=== PATIENT | female | born 1950 | race Caucasian/White ===

== ENCOUNTER → 2017-12-25 | Outpatient (CLI) | payer MEDICARE, OTHER ==
[~2017-12-25] MED LIST: ALB0.5 INH; ALBU2.5V36 INH; ALBU8.5H IH; AMOX-559 PO; BENZ100C4 PO; BUDE10.2 INH; BUDRES25 IH; CEP500 PO; CHOL10005 PO; CLIN300C99 PO; CYA1000 PO; ESOM20CA31 IV; ESOM40CA42 PO; FLUT1BLS3 INH; FLUT1DIS28 IH; HYDR-317 PO; LAC3 GT; LEVO88TA43 PO; MOMR NS; MON10 PO; MONT10TA PO; MULT-820 PO; OMEP-218 PO; ONDA8TAB98 PO; OXYC-865 PO; PRE20 PO; PRED-420 PO; PRED20TA6 PO; RANI150C17 PO
--- NOTE | 2017-12-25 15:12 | RADIOLOGY IMAGING REPORT ---
[place] [facility] [place] NAME: Mariana Land : 1950 MR: [id number] V: [id number] EXAM DATE: ORDERING PHYSICIAN: ELIZABETH MATTHEW TECHNOLOGIST: Location: [facility] - [place] Patient: Mariana Land : 1950 Visit/Account:[id number] Date of Sevice: 12/25/2017 Exam type: CHEST PA AND LAT History: Cough x1 week Comparison: February 11, 2017. Findings: The lungs are free of acute effusions, infiltrates or edema. Cardiac silhouette is normal in size. The trachea is in midline. There are mild spondylotic changes of the thoracic spine. There are surg ical clips in the right upper quadrant of abdomen. IMPRESSION: 1. No acute cardiopulmonary process is seen Report Dictated By: Carie Weems MD at 12/25/2017 3:03 PM Report E-Signed By: Carie Weems MD at 12/25/2017 3:05 PM WSN:[email or web address]
== END ==
LOC: RAD 13:58
PROVIDERS: ATTEND Nurse Practitioner Primary Care
DX: R05 Cough (principal)
CPT/HCPCS: 71046

== ENCOUNTER → 2018-07-18 | Outpatient (CLI) | payer MEDICARE, OTHER ==
--- NOTE | 2018-07-18 12:23 | RADIOLOGY IMAGING REPORT ---
FACILITY: [facility] - [place] PATIENT NAME: Mariana Land : 1950 MR: [id number] V: [id number] EXAM DATE: ORDERING PHYSICIAN: MARYJO OWUSU TECHNOLOGIST: Location[place] [facility] [place] Patient: Mariana Land : 1950 Visit/Account:[id number] Date of Sevice: 07/18/2018 SINUSES W/O CONTRAST COMPARISONS: None ADDITIONAL PERTINENT HISTORY: Recurrent sinusitis with history of asthma and chronic cough and nasal polyp. TECHNIQUE: Multiple axial images were obtained through the paranasal sinuses with coronal and sagitta l reformatted images. No IV contrast was administered. One of the following dose optimization techni ques was utilized in the performance of this exam: Automated exposure control; adjustment of the mA a nd/or kV according to the patient's size; or use of an iterative reconstruction technique. Specific details can be referenced in the facility's radiology CT exam operational policy. FINDINGS: Postoperative changes: Findings which likely represent a previous right medial antrostomy and uncinec cali and partial right internal ethmoidectomy. Maxillary sinuses: Negative. Frontal sinuses: Negative. Ethmoid air cells: Negative. Sphenoid sinuses: Minimal mucosal thickening involving the left sphenoid sinus. Nasal septum: Negati ve. Drainage pathways: Patent Paranasal variance: None Medial orbital arshad, cribriform plate, and orbital floors: Negative. Visualized bony skull base Negative. Visualized intracranial contents: Negative. Orbits and surrounding soft tissues: Negative. IMPRESSION: 1. Postoperative changes involving the paranasal sinuses as discussed above. 2. No significant underlying paranasal sinus disease noted on today's exam. 3. Minimal mucosal thickening involving the left sphenoid sinus. Report Dictated By: Jean-Pierre Roth MD at 07/18/2018 12:16 PM Report E-Signed By: Jean-Pierre Roth MD at 07/18/2018 12:19 PM WSN:[id number]
--- NOTE | 2018-07-18 17:10 | RADIOLOGY IMAGING REPORT ---
FACILITY: [facility] PATIENT NAME: Mariana Land : 1950 MR: [id number] V: [id number] EXAM DATE: ORDERING PHYSICIAN: MARYJO OWUSU TECHNOLOGIST: Location: [facility] [place]: Mariana Land : 1950 Visit/Account:[id number] Date of Sevice: 07/18/2018 EXAMINATION: CT Chest Without Contrast 07/18/2018 10:00 AM HISTORY: Asthma/bronchitis. Chronic cough. Nasal polyp. Recurrent sinusitis. TECHNIQUE: Spiral scan was obtained through the chest without contrast. One of the following dose optimization techniques was utilized in the performance of this exam: Autom ated exposure control; adjustment of the mA and/or kV according to the patient's size; or use of an i terative reconstruction technique. Specific details can be referenced in the facility's radiology C T exam operational policy. COMPARISON STUDIES: Chest x-ray 01/04/2018. Separate CT sinuses today.. FINDINGS: Lungs / pleura: Small patchy density with some groundglass laterally in the right lower lobe ((series 4, images 62 through 64 with coronal image 62 and sagittal images 21 and 22. The overall process nain sures just under 1 cm. Additional markings in both lateral bases have the appearance of atelectasis o r scarring.. Tiny benign-appearing pleural-based micronodule in the lateral left apex (series 4, imag e 14). Mediastinum / syed: negative Heart / pericardium: negative Vessels: Atherosclerosis includes LAD calcification. Musculoskeletal / Body wall: Degenerative spurring in the spine. Lymph node assessment: negative Lower neck: negative Upper abdomen: Small hiatal hernia. Prior cholecystectomy. IMPRESSION: 1. Small patchy focus in the lateral right lower lobe. This may be postinflammatory scarring but acti ve infectious or inflammatory infiltrate would be a possibility. Neoplasm cannot be excluded complete ly without follow-up. 6 month interval is recommended. 2. Mild coronary atherosclerosis. Report Dictated By: Naman Asher MD at 07/18/2018 4:59 PM Report E-Signed By: Naman Asher MD at 07/18/2018 5:06 PM WSN:[email or web address]
== END ==
LOC: CT 04:15
PROVIDERS: ATTEND Nurse Practitioner Family
DX: J34.89 Other specified disorders of nose and nasal sinuses (principal); R91.8 Other nonspecific abnormal finding of lung field; I25.10 Atherosclerotic heart disease of native coronary artery without angina pectoris; K44.9 Diaphragmatic hernia without obstruction or gangrene; Z90.49 Acquired absence of other specified parts of digestive tract
CPT/HCPCS: 70486; 71250

== ENCOUNTER → 2018-08-20 | Outpatient (CLI) | payer MEDICARE, OTHER ==
--- NOTE | 2018-08-20 15:16 | RADIOLOGY IMAGING REPORT ---
FACILITY: [facility] PATIENT NAME: Mariana Land : 1950 MR: [id number] V: [id number] EXAM DATE: ORDERING PHYSICIAN: OMEGA MONTEMAYOR TECHNOLOGIST: Location: [facility] - [place] Patient: Mariana Land : 1950 Visit/Account:[id number] Date of Sevice: 08/20/2018 Chest with lateral, two views. HISTORY: Cough for two months. COMPARISON: CT scan 07/18/2018. Patchy opacities are present in the right lateral lung base, essentially unchanged. The heart and me diastinum are unremarkable. Pulmonary vessels are unremarkable. The lungs are otherwise clear. The pleural surfaces are unremarkable. No pneumothorax. No acute bony abnormalities. Surgical clips are present in the right upper abdomen. IMPRESSION: Infiltrate or scarring in the right lateral lung base, unchanged. Otherwise no evidence of acute cardiopulmonary disease. Report Dictated By: Hua Vergara MD at 08/20/2018 3:10 PM Report E-Signed By: Hua Vergara MD at 08/20/2018 3:13 PM WSN:[email or web address]
== END ==
LOC: RAD 14:28
PROVIDERS: ATTEND Nurse Practitioner Family
DX: R05 Cough (principal)
CPT/HCPCS: 71046

== ENCOUNTER → 2019-01-07 | Outpatient (CLI) | payer MEDICARE, OTHER ==
[~2019-01-07] MED LIST changes: +LEVO75TA73 PO; +OXYGENHOME INH; +VENL37.594 PO
--- NOTE | 2019-01-07 14:27 | RADIOLOGY IMAGING REPORT ---
FACILITY: [facility] - [place] PATIENT NAME: Mariana Land : 1950 MR: [id number] V: [id number] EXAM DATE: ORDERING PHYSICIAN: MARYJO OWUSU TECHNOLOGIST: Location: [facility] - [place] Patient: Mariana Land : 1950 Visit/Account:[id number] Date of Sevice: 01/07/2019 CT CHEST W/O CONTRAST Indication: Chronic cough, lung nodules. Comparison: CT chest 07/18/2018 TECHNIQUE: Noncontrast CT thoracic inlet through the adrenal glands obtained. One of the following d ose optimization techniques was utilized in the performance of this exam: automated exposure control; adjustment of the mA and/or kV according to the patient's size; or use of an iterative reconstructio n technique. Specific details can be referenced in the facility's radiology CT exam operational [place]. FINDINGS: Lungs: There is no suspicious pulmonary nodule. The previously seen patchy focus in the lateral righ t lower lobe has resolved. Mediastinum / syed: Heart size is normal. Great vessels are unremarkable. Musculoskeletal / Body wall: Bones are unremarkable. Lower neck: Normal. Upper abdomen: Changes from a prior cholecystectomy are seen. There is a small gastric hiatal hernia . IMPRESSION: 1. Clear lungs. Previously seen 6 mm nodule right lung base has resolved. 2. Small gastric hiatal hernia. Report Dictated By: Naman Conrad at 01/07/2019 2:16 PM Report E-Signed By: Naman Conrad at 01/07/2019 2:22 PM WSN:[id number]
== END ==
LOC: CT 01:03
PROVIDERS: ATTEND Nurse Practitioner Family
DX: K44.9 Diaphragmatic hernia without obstruction or gangrene (principal)
CPT/HCPCS: 71250

== ENCOUNTER → 2019-03-27 | Outpatient (CLI) | payer MEDICARE, OTHER ==
--- NOTE | 2019-03-31 10:18 | RADIOLOGY IMAGING REPORT ---
FACILITY: [facility] PATIENT NAME: JACQUELINE HUNTLEY : [id number] MR: [id number] V: [id number] EXAM DATE: [id number] ORDERING PHYSICIAN: MARYJO OWUSU TECHNOLOGIST: Carolina Bean PROCEDURE: BILATERAL DIGITAL SCREENING MAMMOGRAM WITH CAD ASSISTED INTERPRETATION & 3D TOMOSYNTHESIS REASON FOR STUDY: Screening. COMPARISON: Priors. VIEWS OBTAINED: 2D & 3D full field CC & MLO. BREAST DENSITY: The breasts are heterogeneously dense. MAMMOGRAM FINDINGS: Asymmetries are present in the upper outer quadrants of both breasts, essentially unchanged. IMPRESSION: BIRADS 1: Negative. DIAGNOSTIC CATEGORY 1--NEGATIVE. RECOMMENDATIONS: ROUTINE MAMMOGRAM AND CLINICAL EVALUATION IN 1 YEAR. Dictated by: Hua Vergara M.D. on 03/30/2019 at 14:30 Transcribed by: CAL on 03/30/2019 at 14:39 Approved by: Carie Weems M.D. on 03/31/2019 at 10:17 [facility]
== END ==
LOC: MAMO 02:30
PROVIDERS: ATTEND Nurse Practitioner Family
DX: Z12.31 Encounter for screening mammogram for malignant neoplasm of breast (principal)
CPT/HCPCS: 77063; 77067

== ENCOUNTER → 2019-06-25 | Outpatient (CLI) | payer MEDICARE, OTHER ==
[~2019-06-25] MED LIST changes: +BARIUM SULFATE 176 GM BTL PO ONE; +BARIUM SULFATE 340 GM POWD ONE; +RANI-325 PO; +[UNRECOGNIZED DRUG - CODE] FT; +[UNRECOGNIZED DRUG - CODE] PO
--- NOTE | 2019-06-25 17:41 | RADIOLOGY IMAGING REPORT ---
FACILITY: [facility] - [place] PATIENT NAME: Mariana Land : 1950 MR: [id number] V: [id number] EXAM DATE: ORDERING PHYSICIAN: REJI NIX TECHNOLOGIST: Location: [facility] Patient: Mariana Land : 1950 Visit/Account:[id number] Date of Sevice: 06/25/2019 Exam type: ESOPHAGRAM History: hiatal hernia and GERD s/p revision fundoplication Comparison: None. Findings: Esophagram was performed with thick and thin barium. Air contrast was not performed since the patien t stated frequent regurgitation following her fundoplication procedure with suspected narrowing There is an impression along the posterior wall of the cervical esophagus likely related to cricophar yngeus muscle. There are postoperative changes from a fundoplication. The patient was administered 12 mm barium tablet which initially did not pass into the stomach. Subsequently during the examinati on the tablet did eventually pass through the operative site. A small amount of gastroesophageal ref lux was observed.. The fluoroscopy dose area product was 650.81 micro-Gerard per meter squared IMPRESSION: 1. There is an impression along the posterior wall of the cervical esophagus likely related to crico pharyngeus muscle. There are postoperative changes from a fundoplication. Initially a 12 mm barium tablet did not pass into the stomach although during the examination the tablet did eventually pass to the operative site . Small amount of gastroesophageal reflux was observed Report Dictated By: Carie Weems MD at 06/25/2019 5:27 PM Report E-Signed By: Carie Weems MD at 06/25/2019 5:34 PM WSN:[email or web address]
== END ==
LOC: MAMO 01-21 01:33 → RAD 00:47
PROVIDERS: ATTEND Otolaryngology
DX: R05 Cough (principal); K21.9 Gastro-esophageal reflux disease without esophagitis
CPT/HCPCS: 74220